=== PATIENT | female | born 1980 | race Caucasian/White ===

== ENCOUNTER 2021-03-16 19:20 | Inpatient (IN) | payer MEDICARE, MEDICAID ==
[~2021-03-16] VITALS: Ht 162.6 cm; Wt 86.7 kg
[2021-03-16 20:15] LABS: AMPHET/METH SCREEN,URINE NEGATIVE (NEGATIVE); BARBITURATE SCREEN, URINE NEGATIVE (NEGATIVE); BENZODIAZEPINES SCREEN,URINE NEGATIVE (NEGATIVE); CANNABINOID SCREEN,URINE NEGATIVE (NEGATIVE); COCAINE SCREEN,URINE NEGATIVE (NEGATIVE); METHADONE SCREEN, URINE NEGATIVE (NEGATIVE); OPIATE SCREEN,URINE NEGATIVE (NEGATIVE)
[2021-03-16 20:20] LABS: PHENCYCLIDINE SCREEN,URINE NEGATIVE (NEGATIVE)
[2021-03-16 20:23] LABS: BASOPHILS % (AUTO) 0.7 % (0.0-2.0); EOSINOPHILS % (AUTO) 2.5 % (1.0-6.0); HEMOGLOBIN 13.8 g/dL (12.0-16.0); LYMPHOCYTES # (AUTO) 2.1 K/uL (1.0-4.8); LYMPHOCYTES % (AUTO) 35.4 % (22.0-44.0); MEAN CORPUSCULAR HEMOGLOBIN 30.8 pg (26.0-34.0); MEAN CORPUSCULAR HGB CONC 32.9 G/dL (31.0-37.0); MEAN CORPUSCULAR VOLUME 94 fL (80-100); MONOCYTES # (AUTO) 0.3 K/uL (0.1-1.0); NEUTROPHILS # (AUTO) 3.2 K/uL (1.8-7.7); NEUTROPHILS % (AUTO) 55.4 % (40.0-70.0); PLATELET COUNT (AUTO) 228 K/uL (150-450); RED BLOOD CELL COUNT(AUTO) 4.49 MIL/uL (4.00-5.20); RED CELL DISTRIBUTION WIDTH 14.3 % (11.5-14.5)
[2021-03-16 20:33] LABS: ANION GAP 10 mmol/L (8-16); CALCIUM, TOTAL 8.6 mg/dL (8.8-10.5); CARBON DIOXIDE 26 mmol/L (22-29); CHLORIDE 108 mmol/L (98-107); CREATININE 0.65 mg/dL (0.60-1.30); GLOMERULAR FILTR. RATE CALC > 60 mL/min (>60); GLUCOSE,RANDOM 101 mg/dL (70-110); POTASSIUM 3.6 mmol/L (3.5-5.1); SODIUM SERUM 144 mmol/L (136-145); UREA NITROGEN, BLOOD 8 mg/dL (7-18)
[2021-03-16 20:46] LABS: ALANINE AMINOTRANSFERASE 20 U/L (12-78); ALBUMIN 3.2 g/dL (3.4-5.0); ALKALINE PHOSPHATASE 53 U/L (46-116); ASPARTATE AMINOTRANSFERASE 18 U/L (15-37); BILIRUBIN,TOTAL 0.1 mg/dL (0.1-1.0); HCG,QUANTITATIVE < 1 mIU/mL (0-6); TOTAL PROTEIN, SERUM 6.1 g/dL (6.4-8.2)
[2021-03-16 20:51] LABS: LITHIUM 0.58 mmol/L (0.60-1.20)
[2021-03-16] MEDS ORDERED: LORazepam 2 MG TABLET PO ONE (21:00)
[2021-03-16] MEDS ORDERED: FLUO10CA24 PO (21:48)
[2021-03-16] MEDS ORDERED: LITH300CRT PO (21:48)
[2021-03-16] MEDS ORDERED: LAMO25TA25 PO (21:48)
[2021-03-16] MEDS ORDERED: QUEtiapine FUMARATE 100 MG TABLET PO PRN (22:00)
[2021-03-17 00:31] LABS: COVID AG,FIA SOURCE NASAL SWAB
[2021-03-17 03:08] VITALS: BP 103/68
[2021-03-17] MEDS: LORazepam 2 MG TABLET PO PRN ×2 (07:46→14:10)
[2021-03-17] MEDS ORDERED: CloNIDine HCL 0.1 MG TABLET PO PRN (08:15)
[2021-03-17] MEDS ORDERED: ACETAMINOPHEN 325 MG TABLET PO PRN (08:15)
[2021-03-17] MEDS ORDERED: GuaiFENesin/D-METHORPHAN [SUGAR-FREE] 200-20MG/10 ML SYRUP UDCUP PO PRN (08:15)
[2021-03-17] MEDS ORDERED: ALBUTEROL SULFATE HFA 90 MCG/PUFF 8 GM INHALER IH PRN (08:15)
[2021-03-17] MEDS ORDERED: ONDANSETRON HCL 4 MG TABLET PO PRN (08:15)
[2021-03-17] MEDS ORDERED: PETROLATUM,WHITE 28 GM JELLY TP PRN (08:15)
[2021-03-17] MEDS ORDERED: MAGNESIUM HYDROXIDE SUSPENSION 30 ML UDCUP PO PRN (08:15)
[2021-03-17] MEDS ORDERED: NICOTINE 14 MG/24 HOUR PATCH TD PRN (08:15)
[2021-03-17] MEDS ORDERED: LOPERAMIDE HCL 2 MG CAPSULE PO PRN (08:15)
[2021-03-17] MEDS ORDERED: MAG HYDROX/AL HYDROX/SIMETH ES 30 ML SUSPENSION UDCUP PO PRN (08:15)
[2021-03-17] MEDS ORDERED: DOCUSATE SODIUM 100 MG CAPSULE PO PRN (08:15)
[2021-03-17 09:08] VITALS: BP 134/99
[2021-03-17] MEDS: FLUoxetine HCL 20 MG CAPSULE PO SCH (12:56)
[2021-03-17] MEDS: LITHIUM CARBONATE 300 MG CAPSULE PO SCH (16:08)
[2021-03-17] MEDS: LamoTRIgine 25 MG TABLET PO SCH (16:08)
[2021-03-17 16:17] VITALS: BP 130/90
[2021-03-17] MEDS: ZOLPIDEM TARTRATE 10 MG TABLET PO PRN (20:11)
[2021-03-18 07:45] VITALS: BP 120/101
[2021-03-18] MEDS: LORazepam 2 MG TABLET PO PRN ×3 (07:49→16:36)
[2021-03-18] MEDS: IBUPROFEN 400 MG TABLET PO PRN (07:49)
[2021-03-18] MEDS: LITHIUM CARBONATE 300 MG CAPSULE PO SCH ×2 (08:00→16:34)
[2021-03-18] MEDS: LamoTRIgine 25 MG TABLET PO SCH ×2 (08:00→16:34)
[2021-03-18] MEDS: FLUoxetine HCL 20 MG CAPSULE PO SCH (08:00)
[2021-03-18 08:49] VITALS: BP 123/63
[2021-03-18 16:29] VITALS: BP 130/76
[2021-03-18] MEDS: ZOLPIDEM TARTRATE 10 MG TABLET PO PRN (20:53)
[2021-03-19] MEDS: LORazepam 2 MG TABLET PO PRN (07:55)
[2021-03-19] MEDS: FLUoxetine HCL 20 MG CAPSULE PO SCH (08:02)
[2021-03-19] MEDS: LamoTRIgine 25 MG TABLET PO SCH ×2 (08:02→16:07)
[2021-03-19] MEDS: LITHIUM CARBONATE 300 MG CAPSULE PO SCH ×2 (08:02→16:07)
[2021-03-19 08:43] VITALS: BP 128/73
[2021-03-19] MEDS ORDERED: LAMO100 PO (11:20)
[2021-03-19] MEDS ORDERED: FLUO20CA36 PO (11:20)
[2021-03-19] MEDS ORDERED: LEVO175T9 PO (11:20)
[2021-03-19] MEDS ORDERED: DIPH25TA PO (11:20)
[2021-03-19] MEDS ORDERED: LITH300C3 PO (11:20)
[2021-03-19 11:50] VITALS: BP 117/67
[2021-03-19] MEDS: IBUPROFEN 400 MG TABLET PO PRN (11:52)
[2021-03-19] MEDS: BusPIRone HCL 5 MG TABLET PO SCH ×2 (12:46→16:51)
[2021-03-19 12:50] VITALS: BP 123/78
[2021-03-19 16:23] VITALS: BP 130/77
[2021-03-19] MEDS: ZOLPIDEM TARTRATE 10 MG TABLET PO PRN (20:47)
[2021-03-20] MEDS ORDERED: LEVOTHYROXINE SODIUM 50 MCG TABLET PO SCH (07:00)
[2021-03-20] MEDS: BusPIRone HCL 5 MG TABLET PO SCH ×2 (08:02→12:20)
[2021-03-20] MEDS: LamoTRIgine 25 MG TABLET PO SCH (08:02)
[2021-03-20] MEDS: FLUoxetine HCL 20 MG CAPSULE PO SCH (08:02)
[2021-03-20] MEDS: LITHIUM CARBONATE 300 MG CAPSULE PO SCH (08:02)
[2021-03-20] MEDS: LORazepam 2 MG TABLET PO PRN (08:03)
[2021-03-20 08:40] VITALS: BP 126/74
[2021-03-20] MEDS ORDERED: BUSP5TAB20 PO (12:20)
== END 2021-03-20 13:20 | disposition home or self-care (01) | DRG 885 ==
LOC: EMS 19:20 → 3EX 03-17 01:06
PROVIDERS: ADMIT Psychiatry & Neurology Child & Adolescent Psychiatry; ATTEND Psychiatry & Neurology Child & Adolescent Psychiatry
PROC: 0HQEXZZ Repair Left Lower Arm Skin, External Approach (ICD-10-PCS; principal; 2021-03-17)
DX: F31.4 Bipolar disorder, current episode depressed, severe, without psychotic features (principal); R45.851 Suicidal ideations; S61.512A Laceration without foreign body of left wrist, initial encounter; F10.129 Alcohol abuse with intoxication, unspecified; Z87.891 Personal history of nicotine dependence; E78.5 Hyperlipidemia, unspecified; E66.9 Obesity, unspecified; Z68.32 Body mass index [BMI] 32.0-32.9, adult; Z20.822 Contact with and (suspected) exposure to COVID-19; X78.1XXA Intentional self-harm by knife, initial encounter; Y93.89 Activity, other specified; Y92.89 Other specified places as the place of occurrence of the external cause; Y99.8 Other external cause status
CPT/HCPCS: 80053; 80061; 80178; 84702; 85025; 99285; G0378; G0480